=== PATIENT | female | born 1970 | race African-American/Black ===

== ENCOUNTER 2017-08-26 15:13 | Emergency (ER) | payer MEDICAID ==
[~2017-08-26] VITALS: Ht 170.2 cm; Wt 93.0 kg
[2017-08-26] MEDS ORDERED: IBUP-2030 PO (16:46)
[2017-08-26] MEDS ORDERED: NITR100C PO (16:46)
[2017-08-26 20:16] VITALS: BP 130/68
[2017-08-26] MEDS: KETOROLAC 60MG/2ML VIAL IM ONE ×2 (20:52→21:10)
== END 2017-08-26 21:00 | disposition home or self-care (01) ==
LOC: ER 16:55
DX: M54.12 Radiculopathy, cervical region (principal); Z88.5 Allergy status to narcotic agent
CPT/HCPCS: 99283; J1885; Z7610

== ENCOUNTER 2022-02-03 14:00 | Emergency (ER) | payer MEDICAID ==
[~2022-02-03] VITALS: Ht 172.7 cm; Wt 79.0 kg
[~2022-02-03 14:00] MED LIST: IBUP-2030 PO; NITR100C PO
[2022-02-03 14:03] VITALS: BP 130/75
== END 2022-02-03 17:24 | disposition left against medical advice (07) ==
LOC: ER 14:08
DX: Z53.21 Procedure and treatment not carried out due to patient leaving prior to being seen by health care provider (principal)

== ENCOUNTER 2024-02-11 21:39 | Emergency (ER) | payer MEDICAID ==
[~2024-02-11] VITALS: Ht 172.7 cm; Wt 91.0 kg
[2024-02-11 21:41] VITALS: O2SAT 98
[2024-02-11 23:15] LABS: BASOPHILS % 0.7 % (0.0-2.0); DIFFERENTIAL COMMENT 0; EOSINOPHILS % 2.1 % (0.0-5.0); HEMATOCRIT. 34.8 % (36.0-48.0); LYMPHOCYTES % 17.5 % (20.0-50.0); MEAN CORPUSCULAR HEMOGLOBIN 23.5 pg (28.0-32.0); MEAN CORPUSCULAR HGB CONC 31.6 g/dL (31.0-37.0); MEAN CORPUSCULAR VOLUME 74.5 fL (81.0-99.0); MEAN PLATELET VOLUME 8.3 fl (7.4-10.4); MONOCYTES % 6.5 % (2.0-8.0); NEUTROPHILS % 73.2 % (40.0-76.0); PLATELET 331 x1000/uL (130-400); RED BLOOD CELL COUNT 4.68 mill/uL (4.2-5.4); RED CELL DISTRIBUTION WIDTH 19.1 % (11.6-14.6); WHITE BLOOD COUNT 6.1 x1000/uL (4.5-11.0)
[2024-02-11 23:17] LABS: CARBON DIOXIDE 24 mEq/L (21-32); CHLORIDE 106 mEq/L (98-107); POTASSIUM 3.2 mEq/L (3.5-5.1); SODIUM 139 mEq/L (136-145)
[2024-02-11 23:18] LABS: CALCIUM 9.1 mg/dL (8.7-10.4)
[2024-02-11] MEDS: SODIUM CHLORIDE 0.9% 1,000 ML IV ONE (23:18)
[2024-02-11] MEDS: KETOROLAC 30MG/ML VIAL IV ONE (23:18)
[2024-02-11 23:22] LABS: CREATININE 1.1 mg/dL (0.6-1.0); GLUCOSE 142 mg/dL (70-105)
[2024-02-11 23:23] LABS: UREA NITROGEN BLOOD 11 mg/dL (9-23)
[2024-02-11 23:24] LABS: ALANINE AMINOTRANSFERASE 9 IU/L (10-49); ALBUMIN 4.4 g/dL (3.2-4.8); ASPARTATE AMINOTRANSFERASE 15 IU/L (<34)
[2024-02-11 23:25] LABS: BILIRUBIN TOTAL 0.5 mg/dL (0.1-1.0); PROTEIN TOTAL 7.2 g/dL (6.0-8.3); TROPONIN I HIGH SENSITIVITY 4 ng/L (3.0-34)
[2024-02-11 23:32] LABS: CLARITY URINE CLOUDY (CLEAR); COLOR URINE YELLOW (YELLOW); GLUCOSE URINE NEGATIVE (NEGATIVE); KETONES URINE TRACE (NEGATIVE); LEUKOCYTE ESTERASE URINE NEGATIVE (NEGATIVE); NITRITE URINE NEGATIVE (NEGATIVE); OCCULT BLOOD URINE 1+ (NEGATIVE); PH URINE 5.5 (4.5-8.0); PROTEIN URINE NEGATIVE (NEGATIVE); SPECIFIC GRAVITY URINE 1.025 (1.005-1.030); UROBILINOGEN URINE 0.2 E.U./dL (0.2-1.0)
[2024-02-11] MEDS: ONDANSETRON HCL 4MG/2ML INJ IV STA (23:32)
[2024-02-11 23:45] LABS: HCG SCREEN NEGATIVE
[2024-02-12 00:22] LABS: BACTERIA URINE NONE SEEN; RBC URINE 0-2 /hpf (0-2); SQUAMOUS EPITHELIAL CELL URINE 2+ /lpf (RARE/1+); WBC URINE 0-2 /hpf (0-2)
[2024-02-12 00:34] VITALS: TEMP 97.9
[2024-02-12] MEDS: POTASSIUM CHLORIDE 20MEQ/PACKET PO ONE (00:40)
[2024-02-12] MEDS ORDERED: POTA-354 MT (00:55)
[2024-02-12] MEDS ORDERED: ONDA4TAB11 PO (00:55)
[2024-02-12] MEDS: MAGNESIUM OXIDE 400MG TABLET PO STA (01:56)
[2024-02-12 01:59] VITALS: BP 121/74; PULSE 63; RESP 16
== END 2024-02-12 02:02 | disposition home or self-care (01) ==
LOC: ER 21:39
DX: R11.2 Nausea with vomiting, unspecified (principal); E87.6 Hypokalemia; E83.42 Hypomagnesemia; M79.601 Pain in right arm; Z87.440 Personal history of urinary (tract) infections; Z79.899 Other long term (current) drug therapy
CPT/HCPCS: 99285; 96360; 71045; 80053; 81003; 84703; 83690; 83735; 85025; 84484; 36415; 93005; J2405; J7030